=== PATIENT | female | born 1960 | race Caucasian/White ===

== ENCOUNTER → 2017-01-06 | Outpatient (CLI) | payer BC ==
--- NOTE | ~2017-01-06 | CR58 ---
[facility] A Service of [facility] & [facility] RADIOLOGY TEXT RESULTS PATIENT: ROSINA PRESCOTT LOCATION: [facility] : 62 UNIT #: [id number] AGE: [address]: Jus Boateng MD SEX: F ORDER DR: [id number] [facility] [address] [place], [place] [address] [id number] O MR#: [id number] Acc #: [id number] NAME: ROSINA PRESCOTT : 1960 SEX: F STUDY DATE/TIME: 01/06/2017 15:17 UNIT: [facility] ROOM: STUDY DESCRIPTION: CR Cervical Spine 2 or 3 Views Attending Physician: Jus Boateng M.D. Referring Physician: Jus Boateng M.D. Ordering Physician: Jus Boateng M.D. Primary Care Physician: Ana Madrigal M.D. MEDICAL IMAGING REPORT This report is preliminary unless electronic signature is present EXAM Cervical spine HISTORY Pain left side of neck radiating to the left arm for 5.5 weeks. Prior fusion. FINDINGS AP, lateral and open mouth views are submitted. The patient has undergone an anterior fusion from C5-C7. Alignment at the fusion site appears anatomic. Remaining bony elements are intact and in normal alignment. 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 CONCLUSION Postop changes of cervical fusion from 5-7. Satisfactory postop appearance. Dictated by... Misael Ferguson M.D. THIS IS AN ELECTRONICALLY VERIFIED REPORT Misael Ferguson M.D. at 01/09/2017 5:09 PM ERWIN/peg TD: 01/07/2017 10:41 JOB #: [id number] MEDICAL IMAGING REPORT COPY
== END | disposition home or self-care (01) ==
LOC: CRAD 15:04
DX: M48.02 Spinal stenosis, cervical region (principal); M54.12 Radiculopathy, cervical region; Z98.890 Other specified postprocedural states
CPT/HCPCS: 72040